=== PATIENT | female | born 1995 | race Caucasian/White ===

== ENCOUNTER 2016-12-08 14:30 | Emergency (ER) | payer BC ==
[~2016-12-08] VITALS: Ht 160 cm; Wt 126.3 kg
[~2016-12-08 14:30] MED LIST: HYDR25TA6 PO; METF500T4 PO
[2016-12-08] MEDS ORDERED: ONDA4TAB10 PO (14:49)
[2016-12-08] MEDS ORDERED: LEVO25TA4 PO (14:49)
[2016-12-08] MEDS ORDERED: PRENATAL (14:49)
[2016-12-08] MEDS ORDERED: SODIUM CHLORIDE 0.9% 1,000ML IVBOLUS ONE (15:00)
[2016-12-08] MEDS ORDERED: SODIUM CHLORIDE FLUSH 10ML SYR IVF ONE (15:00)
[2016-12-08 16:15] LABS: HEMOGLOBIN 12.9 g/dL (11.7-16.4)
[2016-12-08 16:26] LABS: ASPARTATE AMINO TRANSFERASE 15 U/L (15-37); BLOOD UREA NITROGEN 7 mg/dL (7-18)
[2016-12-08 17:46] VITALS: BP 115/70
== END 2016-12-08 17:48 | disposition home or self-care (01) ==
LOC: ED 16:57
DX: O03.4 Incomplete spontaneous abortion without complication (principal)
CPT/HCPCS: 36415; 76801; 80053; 81001; 84702; 85025; 86850; 86900; 87086; 96360; 96361; 99285; J7030

== ENCOUNTER 2016-12-11 16:50 | Emergency (ER) | payer BC ==
[~2016-12-11] VITALS: Ht 160 cm; Wt 126.6 kg
[~2016-12-11 16:50] MED LIST changes: +LEVO25TA4 PO; +ONDA4TAB10 PO; +PRENATAL
[2016-12-11] MEDS ORDERED: SODIUM CHLORIDE 0.9% 1,000 ML IV ONE (17:10)
[2016-12-11] MEDS ORDERED: MORPHINE SULFATE 4 MG/ML, 1ML IVPush PRN (17:30)
[2016-12-11] MEDS ORDERED: ONDANSETRON 2MG/ML, 2ML IVPush ONE (17:30)
[2016-12-11] MEDS ORDERED: KETOROLAC 30 MG/1 ML IVPush ONE (17:30)
[2016-12-11 17:35] VITALS: BP 132/77
[2016-12-11] MEDS ORDERED: MORPHINE SULFATE 4 MG/ML, 1ML ONE (17:39)
[2016-12-11] MEDS ORDERED: ONDANSETRON 2MG/ML, 2ML ONE (17:39)
[2016-12-11] MEDS ORDERED: KETOROLAC 30 MG/1 ML ONE (17:39)
[2016-12-11 17:50] LABS: HEMOGLOBIN 13.1 g/dL (11.7-16.4)
[2016-12-11 18:00] LABS: BLOOD UREA NITROGEN 11 mg/dL (7-18)
== END 2016-12-11 19:29 | disposition home or self-care (01) ==
LOC: ED 19:05
DX: R10.30 Lower abdominal pain, unspecified (principal); E11.9 Type 2 diabetes mellitus without complications
CPT/HCPCS: 36415; 51701; 76801; 80048; 81001; 82040; 85025; 87086; 96361; 96374; 96375; 99285; J1885; J2405; J7030; P9612

== ENCOUNTER 2017-06-17 19:14 | Emergency (ER) | payer BC ==
[~2017-06-17] VITALS: Ht 160 cm; Wt 111.7 kg
[2017-06-17] MEDS ORDERED: KETOROLAC 30 MG/1 ML IV ONE (20:30)
[2017-06-17] MEDS ORDERED: SODIUM CHLORIDE 0.9% 1,000ML IVBOLUS ONE (20:30)
[2017-06-17] MEDS ORDERED: SODIUM CHLORIDE FLUSH 10ML SYR IVF ONE (20:30)
[2017-06-17] MEDS ORDERED: KETOROLAC 30 MG/1 ML ONE (20:34)
[2017-06-17] MEDS ORDERED: OMEP-110 PO (20:44)
[2017-06-17 21:15] LABS: HEMATOCRIT 44.5 % (34.6-47.8); HEMOGLOBIN 15.2 g/dL (11.7-16.4); WHITE BLOOD COUNT 10.2 x10^3/uL (3.4-10)
[2017-06-17 21:23] LABS: BLOOD UREA NITROGEN 9 mg/dL (7-18)
[2017-06-17 22:05] LABS: RAPID INFLUENZA A Negative (Negative); RAPID INFLUENZA B Negative (Negative)
[2017-06-17 22:24] VITALS: BP 136/61
== END 2017-06-17 22:28 | disposition home or self-care (01) ==
LOC: ED 22:15
DX: J01.20 Acute ethmoidal sinusitis, unspecified (principal); E03.9 Hypothyroidism, unspecified; J45.909 Unspecified asthma, uncomplicated; E11.9 Type 2 diabetes mellitus without complications
CPT/HCPCS: 36415; 80048; 82040; 83735; 85025; 87400; 93005; 96361; 96374; 99285; J1885; J7030

== ENCOUNTER 2017-09-05 18:39 | Emergency (ER) | payer BC ==
[~2017-09-05] VITALS: Ht 160 cm; Wt 95.0 kg
[~2017-09-05 18:39] MED LIST changes: +ALBU8.5H8 INH; +OMEP-110 PO
[2017-09-05] MEDS ORDERED: SODIUM CHLORIDE FLUSH 10ML SYR IVF ONE (19:00)
[2017-09-05] MEDS ORDERED: ONDANSETRON 2MG/ML, 2ML IVPush ONE (19:00)
[2017-09-05] MEDS ORDERED: SODIUM CHLORIDE 0.9% 1,000ML IVBOLUS ONE (19:00)
[2017-09-05 19:19] LABS: BASOPHILS # (AUTO) 0.03 x10^3/uL (0-0.1); BASOPHILS % (AUTO) 0 % (0-1); EOSINOPHILS # (AUTO) 0.13 x10^3/uL (0-0.4); EOSINOPHILS % (AUTO) 2 % (1-7); LYMPHOCYTES # (AUTO) 1.95 x10^3/uL (1-3.4); LYMPHOCYTES % (AUTO) 24 % (22-44); MD NO; MEAN CORPUSCULAR HEMOGLOBIN 31.6 pg (27.0-34.8); MEAN CORPUSCULAR HGB CONC 33.6 g/dL (32.4-35.8); MEAN PLATELET VOLUME 10.3 fL (7.4-10.4); MONOCYTES # (AUTO) 0.58 x10^3/uL (0.2-0.8); MONOCYTES % (AUTO) 7 % (2-9); NEUTROPHILS # (AUTO) 5.55 x10^3/uL (1.8-6.8); NEUTROPHILS % (AUTO) 67 % (42-75); PLATELET COUNT 218 x10^3/uL (130-400); RED BLOOD COUNT 4.69 x10^6/uL (3.82-5.3); RED CELL DISTRIBUTION WIDTH 12.8 % (9.6-15.2)
[2017-09-05 19:28] LABS: ALBUMIN 3.8 g/dL (3.4-5.0); ANION GAP 5 mmol/L (5-15); CALCIUM 9.9 mg/dL (8.5-10.1); CHLORIDE 104 mmol/L (98-107)
[2017-09-05 19:33] LABS: ALANINE AMINOTRANSFERASE 77 U/L (12-78); ALKALINE PHOSPHATASE 89 U/L (45-117); BILIRUBIN,TOTAL 1.6 mg/dL (0.2-1.0); CREATININE 0.56 mg/dL (0.55-1.02); TOTAL PROTEIN 7.3 g/dL (6.4-8.2)
[2017-09-05] MEDS ORDERED: SODIUM CHLORIDE 0.9% 1,000 ML IV ONE (20:57)
[2017-09-05] MEDS ORDERED: FAMOTIDINE 20 MG/2 ML IVP ONE (21:00)
[2017-09-05] MEDS ORDERED: METOCLOPRAMIDE 5 MG/ML, 2ML IVPush ONE (21:00)
[2017-09-05] MEDS ORDERED: METOCLOPRAMIDE 5 MG/ML, 2ML ONE (21:08)
[2017-09-05] MEDS ORDERED: FAMOTIDINE 20 MG/2 ML ONE (21:08)
[2017-09-05] MEDS ORDERED: ONDANSETRON 2MG/ML, 2ML ONE (21:08)
[2017-09-05] MEDS ORDERED: HYDROmorphone 1 MG/ML, 1ML IV ONE (21:30)
[2017-09-05] MEDS ORDERED: HYDROmorphone 2 MG/ML, 1ML ONE (21:31)
[2017-09-05] MEDS ORDERED: OMNIPAQUE 350 MG/ML, 100ML BOTTLE ONE (21:52)
[2017-09-05 22:54] VITALS: BP 127/76
== END 2017-09-05 22:56 | disposition home or self-care (01) ==
LOC: ED 22:17
DX: R10.11 Right upper quadrant pain (principal); Z90.49 Acquired absence of other specified parts of digestive tract; R11.2 Nausea with vomiting, unspecified; E03.9 Hypothyroidism, unspecified; E11.9 Type 2 diabetes mellitus without complications; J45.909 Unspecified asthma, uncomplicated; Z98.84 Bariatric surgery status
CPT/HCPCS: 36415; 74022; 74177; 76700; 80053; 83690; 84703; 85025; 96374; 96375; 99285; J1170; J2405; J2765; J7030; Q9967; S0028